=== PATIENT | female | born 2000 | race Two or more races ===

== ENCOUNTER 2024-06-30 18:09 | Emergency (ER) | payer MEDICAID, SELFPAY ==
--- NOTE | 2024-06-30 18:15 | EKG_ITS ---
[facility] Test Date: 2024-06-30 Pat Name: OLIVE [employer]: Room: - Gender: Female Manager Float: : 2000 Requested By: ED Temporary Provider Order Number: [id number] Reading MD: ED Temporary Provider Measurements Intervals [place] Rate: 113 P: 55 AR: 130 QRS: 60 QRSD: 72 T: 39 QT: 308 QTc: 423 Interpretive Statements SINUS TACHYCARDIA ABNORMAL RHYTHM ECG No previous ECG available for comparison /[id number]
[2024-06-30 18:18] VITALS: BP 126/68; PULSE 106; RESP 20; TEMP 36.8; O2SAT 100
--- NOTE | 2024-06-30 18:19 | XR_ITS ---
Examination: PA chest single view TECHNIQUE: Upright PA chest single view Examination type: June 30, 2024 1909 hours INDICATIONS: Chest pain and shortness of breath today. FINDINGS: Early pneumonia left base obscuring detail left hemidiaphragm Right lung clear Normal heart size IMPRESSION: Early pneumonia left base FYI: This examination was dictated at 7:19 PM but apparently not recorded on Power scribe
--- NOTE | 2024-06-30 18:20 | EDNOTE_ITS ---
ED Chest Pain RME/HPI General Chief Complaint: Chest Pain Stated Complaint: CHEST PAIN STARTING AT 5PM Time Seen by Provider: 06/30/24 18:19 Source: patient, RN notes reviewed, old records reviewed and other (Friend) Arrival date/time: 06/30/24 18:09 Mode of arrival: ambulatory Limitations: no limitations RME / HPI RME / HPI narrative: 24yof presents to ED with friend for mid chest pressure that initiated 1 hour prior to arrival. Patient reports she recently started exercising. Also lifts and carries her child. Chest pressure worsens with movement, deep breaths and palpation. No fever, cough, shortness of breath, nausea/vomiting, dizziness or syncope reported. 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 Related Data Previous Rx's ?Medication ?Instructions ?Recorded ibuprofen 600 mg tablet 600 mg PO Q6H PRN pain #30 t abs 06/30/24 methocarbamol 500 mg tablet 1,000 mg (2 x 500 mg) PO Q 8H PRN 06/30/24 pain #20 tabs Allergies Allergy/AdvReac Type Severity Reaction Status Date / Time No Known Allergies Allergy Verified 06/30/24 18:14 Review of Systems Review of Systems Systems Reviewed: All systems reviewed, normal except as documented Constitutional Constitutional: Denies chills and Denies fever(s) ENT Ears, Nose, Mouth, and Throat: Denies dizziness and Denies nasal congestion Cardiovascular Cardiovascular: Reports chest pain and Denies dyspnea Respiratory Respiratory: Denies cough and Denies dyspnea Gastrointestinal Gastrointestinal: Denies nausea and Denies vomiting Neurologic Neurologic: Denies dizziness Past Medical History Past Medical History GASTROINTESTINAL: Positive Obesity Surgical History SURGICAL: Positive Section Social History SMOKING STATUS: Never smoker SUBSTANCE USE: does not use ALCOHOL: Current (Social) ED Exam General Limitations: Present no limitations General appearance: Present alert, in no apparent distress and obese Head Head exam: Present atraumatic and normocephalic Eye Eye exam: Present normal appearance, PERRL and EOMI ENT ENT exam: Present normal exam and mucous membranes moist Neck Neck exam: Present normal inspection and full ROM Chest Chest inspection: Present symmetric chest wall rise and tenderness (mid-chest wall) Respiratory Respiratory exam: Present normal lung sounds bilaterally and other (No wheezing, rales or rhonchi); Absent respiratory distress Cardiovascular Cardiovascular exam: Present normal rhythm and tachycardia Extremities Exam Extremities exam: Present normal inspection and full ROM Neurological Exam Neurological exam: Present alert and oriented X3 Psychiatric Psychiatric exam: Present normal affect and normal mood Skin Skin exam: Present warm, dry, intact and normal color Course Quality Measures none Orders Category Date Time Status EKG (ED ONLY) *Do not use* NOW Care 06/30/24 18:15 Completed CXR [XR chest 1V] Stat Exams 06/30/24 18:19 Completed EKG (ED Only) Stat Exams 06/30/24 18:15 Draft CBC Stat Lab 06/30/24 18:33 Completed CMP [Comprehensive Metabolic Panel] Stat Lab 06/30/24 18:33 Completed HCG,Qualitative Serum Stat Lab 06/30/24 18:33 Completed Troponin I Stat Lab 06/30/24 18:33 Completed CYCLObenzaPRINE [Flexeril] Med 06/30/24 18:19 Discontinued 5 mg PO X1 ONE Ketorolac Inj [Toradol Inj] Med 06/30/24 18:19 Discontinued 30 mg IM X1 ONE Vital Signs Vital signs: Vital Signs Temperature 98.2 F 06/30/24 18:18 Pulse Rate 106 H 06/30/24 18:18 Respiratory Rate 20 06/30/24 18:18 Blood Pressure 126/68 06/30/24 18:18 Pulse Oximetry (%) 100 06/30/24 18:18 Oxygen Delivery Method Room Air 06/30/24 18:18 Procedures -ED EKG Interpretation #1: Date of EK06/30/24 Rate: 113 Interpretation: Interpreted by me EKG Impression: No acute ST-T changes, No ectopy, No ischemic changes, Sinus tachycardia, Normal QRS, Normal intervals and Normal axis Chest Pain MDM Narrative MDM Narrative:: 24yof presents to ED with friend for mid chest pressure that initiated 1 hour prior to arrival. Patient reports she recently started exercising. Also lifts and carries her child. Chest pressure worsens with movement, deep breaths and palpation. No fever, cough, shortness of breath, nausea/vomiting, dizziness or syncope reported. 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 Patient reassessed. Symptoms improved after medications administered. ED workup reassuring. Suspect MSK etiology, pain worsens with movement and palpation. CXR read by radiologist as early pneumonia left base. Patient has no fever, cough or URI symptoms. Low suspicion for infectious etiology at this time. Encouraged rest, NSAID, muscle relaxer, ice application prn. Stable for discharge, RTED precautions given. Patient data External records reviewed:: None (no prior visits) Clinical information provided by:: patient and friend Social determinants that could affect healthcare access:: other (specify) (poor access to healthcare) Patient has the following chronic illnesses:: obesity How is presenting disease/condition affected by chronic disease/condition?: exacerbated by Evaluation data The following diagnostics were reviewed and interpreted by me:: lab results, radiology exam(s) and EKG tracing(s) Lab and/or radiology exams considered but not ordered:: D-dimer: Do not suspect PE based on history and exam Interpretation Summary: CXR: No pneumonia per my read Trop negative Medications / Prescriptions Medications or Prescriptions considered but not ordered:: No antibiotics recommended at this time Medication administrations:: Medication Administration History Discontinued Medications Cyclobenzaprine HCl (Cyclobenzaprine 5 Mg Tablet) 5 mg PO X1 ONE Stop: 06/30/24 18:20 Last Admin: 06/30/24 18:58 Dose: 5 mg Documented By: SHANNON Ketorolac Tromethamine (Ketorolac Inj 60 Mg/2 Ml Vial) 30 mg IM X1 ONE Stop: 06/30/24 18:20 Last Admin: 06/30/24 18:58 Dose: 30 mg Documented By: SHANNON Above medications administered in ED Consultations Consultation(s) initiated? (list below): No Diagnosis Chest Pain Differential Diagnosis: pneumothorax, stable angina, st elevation myocardial infarction, costochondritis and chest pain Most likely diagnosis given after review of the tests above:: Chest wall pain Admission Indicated Admission indicated?: not indicated Admission Request Was there a request for admission?: No Disposition Plan Disposition Plan: Discharge Discharge Attestation Discharge Attestation: The patient and all family members were given an opportunity to ask questions and understood the discharge instructions. Discharge instructions specifically effects, indications for sooner follow up or return to the emergency department, and the expected course of current diagnosis. Patient condition: Stable Discharge Plan Plan Patient Disposition: HOME (Self Care) Patient condition on transfer: Stable Prescriptions/Referrals Prescriptions/Med Rec: New ibuprofen 600 mg tablet 600 mg PO Q6H PRN (Reason: pain) Qty: 30 0RF methocarbamol 500 mg tablet 1,000 mg PO Q8H PRN (Reason: pain) Qty: 20 0RF Referrals: No Primary/Family,Physician [Primary Care Provider] - In 1 week Problem List Clinical Impression: Chest wall pain Patient/Caregiver Discharge Instructions Education Materials: ED Chest Pain, Noncardiac Print Language: [place] Stand Alone Forms: [facility] Award Info., Patient Portal Info Letter PA/CERAMIC COATER MACHINE Supervising Physician PA/CERAMIC COATER MACHINE Supervising Physician: Prakash
[2024-06-30 18:46] LABS: Basophils % (Auto) 0 % (0-2.5); Eosinophils % (Auto) 0 % (0-10); Hematocrit 38.4 % (36.0-46.0); Hemoglobin 12.9 g/dL (12.0-16.0); Immature Granulocytes % (Auto) 0 % (0-0); Immature Granulocytes Auto 0.02 Thou/mm3 (0.00-0.00); Lymphocytes # (Auto) 1.6 Thou/mm3 (1.0-4.8); Lymphocytes % (Auto) 18 % (10-50); Mean Corpuscular HGB Conc 33.6 g/dl (31.0-37.0); Mean Corpuscular Hemoglobin 28.7 pg (25.0-35.0); Mean Corpuscular Volume 85 fL (80-100); Monocytes # (Auto) 0.7 Thou/mm3 (0.0-0.8); Monocytes % (Auto) 8 % (0-12); Neutrophils # (Auto) 6.6 Thou/mm3 (1.8-7.7); Neutrophils % (Auto) 74 % (37-80); Nucleated Red Blood Cell % 0 /100 WBC (0); Platelet Count 217 Thou/mm3 (140-440); RDW Standard Deviation 43.1 fL (36.4-46.3)
[2024-06-30] MEDS: CYCLObenzaPRINE 5 MG TABLET PO (18:58)
[2024-06-30] MEDS: KETOROLAC INJ 60 MG/2 ML VIAL 30 MG IM (18:58)
[2024-06-30 19:14] LABS: HCG,Qualitative Serum Negative
[2024-06-30 19:22] LABS: Alanine Aminotransferase 7 U/L (10-49); Albumin, Serum 4.6 gm/dL (3.5-5.0); Albumin/Globulin Ratio 1.5 (1.2-2.2); Alkaline Phosphatase 98 U/L (46-116); Anion Gap 10 (7-16); Aspartate Amino Transferase 13 U/L (0-34); BUN/Creatinine Ratio 9 Ratio (12-20); Bilirubin,Total 0.4 mg/dL (0.3-1.2); Blood Urea Nitrogen 6 mg/dL (9-23); Calcium 10.2 mg/dL (8.3-10.6); Calcium (Corrected) 10.2 mg/dL (8.5-10.1); Carbon Dioxide 23.3 mMol/L (20.0-31.0); Chloride 108 mMol/L (98-107); Creatinine (Component) 0.7 mg/dL (0.6-1.3); Globulin 3.1 gm/dL (2.3-3.5); Glucose 129 mg/dL (74-106); Osmolality,Calculated 280 (275-295); Potassium 3.7 mMol/L (3.4-5.1); Sodium 141 mMol/L (136-145); Total Protein 7.7 gm/dL (5.7-8.2); Troponin I < 0.002 ng/mL (0.0-0.045); eGFR > 60 See Note
[2024-06-30 21:21] VITALS: PULSE 72; RESP 16; O2SAT 98
== END 2024-06-30 21:23 | disposition home or self-care (01) ==
PROVIDERS: Physician Assistant; Emergency Provider Emergency Medicine
DX: R07.89 Other chest pain (principal)
CPT/HCPCS: 36415; 71045; 80053; 84484; 84703; 85025; 93005; 96372; 99283; J1885; A9270